=== PATIENT | male | born 1985 | race Caucasian/White ===

== ENCOUNTER → 2017-03-12 | Outpatient (CLI) | payer BC ==
--- NOTE | 2017-03-13 07:59 | XR ---
EXAMINATION TYPE: XR chest 2V DATE OF EXAM: 03/12/2017 COMPARISON: NONE HISTORY: Shortness of breath and cough TECHNIQUE: Frontal and lateral views of the chest are obtained. FINDINGS: There is no focal air space opacity, pleural effusion, or pneumothorax seen. The cardiac silhouette size is within normal limits. There is bronchial wall thickening. The osseous structures are intact. IMPRESSION: Correlate for reactive airways disease, bronchitis, follow-up as indicated
== END | disposition home or self-care (01) ==
LOC: RADXRYALE 15:49
PROVIDERS: ATTEND Physician Assistant Medical
DX: J40 Bronchitis, not specified as acute or chronic (principal); J98.4 Other disorders of lung
CPT/HCPCS: 71020

== ENCOUNTER 2019-03-18 06:12 | Day surgery (SDC) | payer BC ==
[2019-03-13 10:28] VITALS: BMI 33.9
--- NOTE | 2019-03-17 13:25 | P.GSHP ---
History of Present Illness H&P Date: 03/17/19 33 yo male comes for a microscopic vasovasostomy He had a vasectomy 9 years ago He has had 3 children He was and remarried He comes for vas reversL THE risks an comlications as well as the statistical success rates have been discussed - Constitutional Constitutional: Denies chills, Denies fever - EENT Eyes: denies blurred vision, denies pain Ears, nose, mouth and throat: Denies headache, Denies sore throat - Cardiovascular Cardiovascular: Denies chest pain, Denies shortness of breath - Respiratory Respiratory: Denies cough, Denies 7 - Gastrointestinal Gastrointestinal: Denies abdominal pain, Denies diarrhea, Denies nausea, Denies vomiting - Genitourinary (Female) Genitourinary: Denies dysuria, Denies hematuria - Genitourinary (Male) Genitourinary: Denies dysuria, Denies hematuria - Musculoskeletal Musculoskeletal: Denies myalgias - Integumentary Integumentary: Denies pruritus, Denies rash - Neurological Neurological: Denies numbness, Denies weakness - Psychiatric Psychiatric: Denies anxiety, Denies depression - Endocrine Endocrine: Denies fatigue, Denies weight change Past Medical History Past Medical History: Asthma Additional Past Medical History / Comment(s): asthma as a child History of Any Multi-Drug Resistant Organisms: None Reported Additional Past Surgical History / Comment(s): dental Past Anesthesia/Blood Transfusion Reactions: No Reported Reaction Smoking Status: Current every day smoker - Past Family History Mother Additional Family Medical History / Comment(s): Recovering addict Medications and Allergies Home Medications Medication Instructions Recorded Confirmed Type Lurasidone [Latuda] 80 mg PO HS 03/13/19 03/13/19 History lamoTRIgine [LaMICtal] 200 mg PO HS 03/13/19 03/13/19 History Allergies Allergy/AdvReac Type Severity Reaction Status Date / Time Iodinated Contrast- Oral and Allergy Mild Rash/Hives Unverified 04/26/16 18:09 IV Dye [Iodinated Contrast Media - IV Dye] Penicillins Allergy Unknown Verified 03/13/19 10:36 Sulfa (Sulfonamide Allergy Unknown Verified 03/13/19 10:36 Antibiotics) Surgical - Exam - General well developed, well nourished, no distress - Eyes PERRL - ENT no hearing loss - Neck no masses - Respiratory normal expansion, normal respiratory effort - Cardiovascular Rhythm: regular - Abdomen Abdomen: soft, non tender - Genitourinary bilateral vasectomy sites without granulomas are identified. 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
[~2019-03-18 06:12] MED LIST: HYDROmorphone 0.5 MG/0.5 ML SYRINGE IVP PRN; LACTATED RINGERS 1,000 ML IV SCH; LIDOCAINE 1% 20 ML VIAL (10MG/ML) FOR IV START INTRADERMA PRN; ONDANSETRON 4 MG/2 ML VIAL IVP ONE
[2019-03-18] MEDS ORDERED: fentaNYL (PF) 50 MCG/ML 2 ML AMP ONE (07:18)
[2019-03-18] MEDS ORDERED: LIDOCAINE 1% INJ 10MG/ML (20 ML MDV) ONE (07:18)
[2019-03-18] MEDS ORDERED: PROPOFOL 10 MG/ML 20 ML VIAL IV ONE (07:18)
[2019-03-18] MEDS ORDERED: MIDAZOLAM 2 MG/2 ML VIAL ONE (07:18)
[2019-03-18] MEDS ORDERED: HYDROmorphone (PF) 1 MG/ML ONE (07:18)
[2019-03-18 07:42] LABS: HCT 45.8 % (39.0-53.0); HGB 15.9 gm/dL (13.0-17.5); MCH 29.3 pg (25.0-35.0); MCHC 34.7 g/dL (31.0-37.0); MCV 84.4 fL (80.0-100.0); Mean Platelet Volume 7.5; Platelet Count 185 k/uL (150-450); RBC 5.43 m/uL (4.30-5.90); WBC 5.9 k/uL (3.8-10.6)
[2019-03-18] MEDS ORDERED: BUPIVACAINE (PF) 0.5% 30 ML VIAL SQ ONE (09:19)
[2019-03-18 09:37] VITALS: TEMP 96.8
--- NOTE | 2019-03-18 09:45 | P.OP ---
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 He is 9 years status post vasectomy. He has been and remarried. He wishes to have children. He comes for microscopic vasovasostomy. Description of Procedure: The patient is brought to the operating suite. He is given a general anesthesia. He is given a shave and then sterile prep and drape. The granuloma from the right vasectomy is identified. I make an incision over the granuloma. I dissect and identify the distal vas and place a vas clamp around it. I cleaned the vas off proximally and distally from the clamp. A make an incision and calibrate the opening with lacrimal duct probes. I then moved proximally towards the granuloma at towards the testicle. It is extremely scarred. I see the stitch from the vasectomy . It appears to be an Ethibond stitch. I March continued proximally through a lot of scar tissue. I get into the convoluted vas before I get normal vas. The vas clamp is placed around the convoluted vas. I incised the vas and there is fluid emanating. I dissect proximally and distally. There is a discrepancy in the size between the convoluted vas and the distal vas. I then do an anastomosis. I used 3 9-0 stitches in the mucosal muscular layer to approximate the convoluted vas to the distal vas . I then placed 5 8-0 stitches in the seromuscular area to strengthen the anastomosis. This is done without difficulty. The vas anastomosis was allowed to retract back scan. I then approached the left side. The granuloma was identified. It is grasped between thumb and forefinger. An incision is made over the granuloma. Identify the vas distally and place a vas clamp around it. I dissect proximally and distally the clamp to make an incision in the vas. I dilate with the lacrimal duct probes. Then moved proximally towards the testicle. Identify the vas. I placed the vas clamp around it. I dissect proximally and distally. I am not in the convoluted vas. I transected the vas and passed the lacrimal duct probes proximally. There is fluid emanating from the vas. I then do a 2 layered anastomosis with 9-0 mucosal muscular stitches and then 8-0 seromuscular stitches. The anastomosis is stable. Its lateral retract back into the subcutaneous tissue. The skin is closed with 3-0 chromic bilaterally. A cord block bilaterally with 5 mL of half percent Marcaine plain to each cord. The patient awake and returned recovery in good condition. Blood loss is about 10 mL.
[2019-03-18] MEDS ORDERED: KETOROLAC 30 MG/ML 1 ML VIAL IVP ONE (09:50)
[2019-03-18 10:14] VITALS: RESP 18
[2019-03-18 11:06] VITALS: BP 112/76; PULSE 78
== END 2019-03-18 11:23 | disposition home or self-care (01) ==
LOC: OR 06:12
PROVIDERS: ATTEND Urology
DX: Z31.0 Encounter for reversal of previous sterilization (principal); F43.10 Post-traumatic stress disorder, unspecified; F17.200 Nicotine dependence, unspecified, uncomplicated; Z79.899 Other long term (current) drug therapy; Z88.0 Allergy status to penicillin; Z88.2 Allergy status to sulfonamides; Z91.041 Radiographic dye allergy status
CPT/HCPCS: 55400; 85027; J2250; J2405; J2001; J3010; J1885; J1170; J2704